=== PATIENT | male | born 1990 | race Caucasian/White ===

== ENCOUNTER 2017-09-17 08:21 | Emergency (ER) | payer SELFPAY ==
[~2017-09-17] VITALS: Ht 177.8 cm; Wt 77.1 kg
[2017-09-17 08:36] VITALS: BP 125/68
[2017-09-17 09:21] LABS: HEMATOCRIT 44.3 % (42.0-52.0); HEMOGLOBIN 15.6 G/DL (14.2-18.0); LYMPHOCYTES % (AUTO) 10.5 % (20.0-45.0); MEAN CORPUSCULAR VOLUME 92 FL (80-99); MONOCYTES % (AUTO) 8.2 % (1.0-10.0); NEUTROPHILS % (AUTO) 79.3 % (45.0-75.0); PLATELET COUNT 189 K/UL (150-450); RED BLOOD COUNT 4.81 M/UL (4.70-6.10); RED CELL DISTRIBUTION WIDTH 10.3 % (11.6-14.8); WHITE BLOOD COUNT 12.8 K/UL (4.8-10.8)
[2017-09-17 09:25] LABS: ANION GAP 7 mmol/L (5-15); BLOOD UREA NITROGEN 19 mg/dL (7-18); CALCIUM 9.1 MG/DL (8.5-10.1); CARBON DIOXIDE 28 MMOL/L (21-32); CHLORIDE 105 MMOL/L (98-107); CREATININE 0.7 MG/DL (0.55-1.30); POTASSIUM 4.8 MMOL/L (3.5-5.1); SODIUM 140 MMOL/L (136-145)
[2017-09-17 09:39] LABS: ALANINE AMINOTRANSFERASE 37 U/L (12-78); ALBUMIN 4.1 G/DL (3.4-5.0); ALBUMIN/GLOBULIN RATIO 1.2 (1.0-2.7); ALKALINE PHOSPHATASE 61 U/L (46-116); ASPARTATE AMINO TRANSFERASE 18 U/L (15-37); BILIRUBIN,TOTAL 0.5 MG/DL (0.2-1.0)
[2017-09-17] MEDS ORDERED: CIPROFLOXACIN500 M2 ORAL (10:30)
[2017-09-17] MEDS ORDERED: ANUSOL-HC30 GM RC (10:30)
--- NOTE | 2017-09-17 10:34 | Emergency Room Report ---
History of Present Illness General Chief Complaint: Abdominal Pain Source: Patient Present Illness HPI Patient presents with complaints of left-sided mid abdominal pain cramping sensation He reports that he has been constipated and having to bear down has caused some rectal discomfort as well Patient had previous hemorrhoid surgery about 3 years ago He was now seeing some blood when he wiped on the toilet paper Denies any vomiting denies any diarrhea denies any chest pain or shortness of breath denies any fevers pain is 3-4 out of 10 Main location of discomfort is the rectal region Allergies: Coded Allergies: AMOXICILLIN (Verified Allergy, Unknown, 09/17/17) CLAVULANIC ACID (Verified Allergy, Unknown, 09/17/17) Patient History Past Medical History: see triage record Pertinent Family History: none Reviewed Nursing Documentation: PMH: Agreed; PSxH: Agreed Nursing Documentation-PMH Past Medical History: No History, Except For Hx Gastrointestinal Problems: Yes - hemmoroids Review of Systems All Other Systems: negative except mentioned in HPI Physical Exam Vital Signs Date Time Temp Pulse Resp B/P (MAP) Pulse Ox O2 Delivery O2 Flow Rate FiO2 09/17/17 08:23 98.2 80 16 130/72 99 Room Air 98.2 Sp02 EP Interpretation: reviewed, normal General Appearance: well appearing, no apparent distress Head: normocephalic, atraumatic Eyes: bilateral eye PERRL, bilateral eye EOMI ENT: hearing grossly normal, normal pharynx, TMs + canals normal, uvula midline Neck: full range of motion, supple, no meningismus, no bony tend Respiratory: lungs clear, normal breath sounds, no rhonchi, no respiratory distress, no retraction, no accessory muscle use Cardiovascular #1: normal peripheral pulses, regular rate, rhythm, no edema, no gallop, no JVD, no murmur Gastrointestinal: normal bowel sounds, non tender, soft, no mass, no organomegaly, non-distended, no guarding, no hernia, no pulsatile mass, no rebound Rectal: other - Externally there is no signs of any hemorrhoids no fissure palpated or seen Genitourinary: no CVA tenderness Musculoskeletal: normal inspection Neurologic: oriented x3, responsive, group supervisor yard III-XII nml as tested, motor strength/ tone normal, sensory intact Psychiatric: mood/affect normal Skin: normal color, no rash, warm/dry, palpation normal Lymphatic: normal inspection, no adenopathy Medical Decision Making Diagnostic Impression: Primary Impression: abdominal pain ER Course With the history exam and presentation, multiple differentials considered, including but not limited to appendicitis, gastritis, cholecystitis, diverticulitis Patient's white blood cell count is very minimally elevated Repeat abdominal exams performed and the patient's abdomen remains soft and nontender I had discussion with them regarding early appendicitis and the need for close follow-up CT imaging was not appropriate at this time Patient also requesting medicine for rectal discomfort And will have close outpatient follow-up Labs Test 09/17/17 08:52 White Blood Count 12.8 K/UL (4.8-10.8) Red Blood Count 4.81 M/UL (4.70-6.10) Hemoglobin 15.6 G/DL (14.2-18.0) Hematocrit 44.3 % (42.0-52.0) Mean Corpuscular Volume 92 FL (80-99) Mean Corpuscular Hemoglobin 32.5 PG (27.0-31.0) Mean Corpuscular Hemoglobin Concent 35.3 G/DL (32.0-36.0) Red Cell Distribution Width 10.3 % (11.6-14.8) Platelet Count 189 K/UL (150-450) Mean Platelet Volume 7.3 FL (6.5-10.1) Neutrophils (%) (Auto) 79.3 % (45.0-75.0) Lymphocytes (%) (Auto) 10.5 % (20.0-45.0) Monocytes (%) (Auto) 8.2 % (1.0-10.0) Eosinophils (%) (Auto) 1.0 % (0.0-3.0) Basophils (%) (Auto) 1.0 % (0.0-2.0) Sodium Level 140 MMOL/L (136-145) Potassium Level 4.8 MMOL/L (3.5-5.1) Chloride Level 105 MMOL/L (98-107) Carbon Dioxide Level 28 MMOL/L (21-32) Anion Gap 7 mmol/L (5-15) Blood Urea Nitrogen 19 mg/dL (7-18) Creatinine 0.7 MG/DL (0.55-1.30) Estimat Glomerular Filtration Rate > 60 mL/min (>60) Glucose Level 108 MG/DL (74-106) Calcium Level 9.1 MG/DL (8.5-10.1) Total Bilirubin 0.5 MG/DL (0.2-1.0) Aspartate Amino Transf (AST/SGOT) 18 U/L (15-37) Alanine Aminotransferase (ALT/SGPT) 37 U/L (12-78) Alkaline Phosphatase 61 U/L (46-116) Total Protein 7.5 G/DL (6.4-8.2) Albumin 4.1 G/DL (3.4-5.0) Globulin 3.4 g/dL Albumin/Globulin Ratio 1.2 (1.0-2.7) Lipase 78 U/L (73-393) Last Vital Signs Date Time Temp Pulse Resp B/P (MAP) Pulse Ox O2 Delivery O2 Flow Rate FiO2 09/17/17 08:36 98.2 83 14 125/68 100 Room Air 98.2 Status: improved Disposition: HOME, SELF-CARE Condition: Stable Scripts Hydrocortisone Hc 2.5% Cream (ANUSOL-HC 2.5% CREAM) Y Cr 30 GM RC TID for 7 Days, GM Prov: Mikel Gao DO 09/17/17 Ciprofloxacin Hcl* (CIPROFLOXACIN HCL*) 500 Mg Tablet 500 MG ORAL Q12H, #10 TAB 0 Refills Prov: Mikel Gao DO 09/17/17 Referrals: NOT CHOSEN [facility]/MD,REFERRING (PCP) Patient Instructions: Abdominal Pain, Adult Additional Instructions: Early appendicitis instructions have been given. If he develop any increased fever or pain localizing to the right side these may be signs of your appendix being infected and you need to return to the emergency room immediately. At this time the exam is not consistent with appendicitis, however early presentations can be missed Mikel Goa DO September 17, 2017 10:34
[2017-09-17 10:46] VITALS: BP 124/76
[2017-09-18] MEDS ORDERED: ACETAMINOPHEN-1 EAC1 ORAL (10:08)
[2017-09-18] MEDS ORDERED: BACTRIM DS TAB1 EAC1 ORAL (10:08)
== END 2017-09-17 10:50 | disposition home or self-care (01) ==
LOC: EMR 08:53
DX: R10.9 Unspecified abdominal pain (principal); Z88.0 Allergy status to penicillin; Z88.8 Allergy status to other drugs, medicaments and biological substances
CPT/HCPCS: 36415; 80053; 83690; 85025; 99284

== ENCOUNTER 2017-09-18 07:24 | Emergency (ER) | payer SELFPAY ==
[~2017-09-18] VITALS: Ht 177.8 cm; Wt 77.1 kg
[~2017-09-18 07:24] MED LIST: ANUSOL-HC30 GM RC; CIPROFLOXACIN500 M2 ORAL
[2017-09-18 07:38] VITALS: BP 138/69
[2017-09-18] MEDS ORDERED: Isovue-300 100ml vial INJ PRN (08:15)
[2017-09-18] MEDS ORDERED: Morphine Sulfate 4mg/ml Inj IVP ONE (08:22)
--- NOTE | 2017-09-18 08:45 | Emergency Room Report ---
History of Present Illness General Chief Complaint: Skin Rash/Abscess Source: Patient Present Illness HPI 26-year-old male presents with rectal pain after having diarrhea for the last few days He reports no bowel pain, no vomiting, no diarrhea for the last day, no fever However he reports rectal pain and feels like he may have an abscess It is very painful and tender to touch and hurts when he wipes He denies rectal bleeding He does report he's had a hemorrhoidectomy in the remote past He's tried topical hydrocortisone without relief Allergies: Coded Allergies: AMOXICILLIN (Verified Allergy, Unknown, 09/17/17) CLAVULANIC ACID (Verified Allergy, Unknown, 09/17/17) Patient History Limited by: language barrier Past Medical History: see triage record Reviewed Nursing Documentation: PMH: Agreed; PSxH: Agreed Nursing Documentation-PMH Past Medical History: No History, Except For Hx Gastrointestinal Problems: Yes - hemmoroids Review of Systems All Other Systems: negative except mentioned in HPI Physical Exam Vital Signs Date Time Temp Pulse Resp B/P (MAP) Pulse Ox O2 Delivery O2 Flow Rate FiO2 09/18/17 07:28 98.5 79 18 133/66 98 Room Air 98.4 Sp02 EP Interpretation: reviewed, normal General Appearance: no apparent distress, alert, non-toxic Head: normocephalic Eyes: bilateral eye normal inspection, bilateral eye PERRL, bilateral eye EOMI ENT: normal ENT inspection, hearing grossly normal, normal pharynx, no angioedema, normal voice, moist mucus membranes Neck: normal inspection, full range of motion, supple, supple/symm/no masses Respiratory: chest non-tender, lungs clear, normal breath sounds, chest symmetrical, palpation of chest normal Cardiovascular #1: normal peripheral pulses, regular rate, rhythm Gastrointestinal: normal inspection, non tender, soft, no mass, no guarding, no rebound Rectal: tenderness - Tiny <1cm mass at 3 o'clock position, with obvious erythema and tenderness concerning for abscess versus cellulitis alone, immediately at the external portion of the anal sphincter Genitourinary: normal inspection, no CVA tenderness Musculoskeletal: back normal, gait/station normal, normal range of motion, non- tender, no calf tenderness Neurologic: alert, responsive, taker down III-XII nml as tested, motor strength/tone normal, sensory intact, speech normal Psychiatric: judgement/insight normal, memory normal, mood/affect normal, no suicidal/homicidal ideation Skin: normal color, no rash, warm/dry, normal turgor Lymphatic: no adenopathy Medical Decision Making ER Course Dr. Todd came down and requested a CT scan prior to performing I&D of this anal sphincter abscess Patient was given analgesics and antibiotics CT/MRI/US Diagnostic Results CT/MRI/US Diagnostic Results : Imaging Test Ordered: ct pelvis with IV contrast Impression Pt had an I&D performed by Dr. Todd, and will be dc'd with f/u with him as an outpatient. Last Vital Signs Date Time Temp Pulse Resp B/P (MAP) Pulse Ox O2 Delivery O2 Flow Rate FiO2 09/18/17 07:38 98.4 78 18 138/69 98 Room Air 98.4 Status: improved Disposition: HOME, SELF-CARE Condition: Stable Referrals: NOT CHOSEN [facility]/,REFERRING (PCP) JADE MAN M.D September 18, 2017 08:45
[2017-09-18] MEDS ORDERED: Piperacillin/Tazobactam 3.375 GM in NS 110 ML IVPB ONE (09:15)
[2017-09-18 09:19] LABS: BASOPHILS % (AUTO) 0.6 % (0.0-2.0); EOSINOPHILS % (AUTO) 0.3 % (0.0-3.0); HEMATOCRIT 44.5 % (42.0-52.0); HEMOGLOBIN 15.9 G/DL (14.2-18.0); LYMPHOCYTES % (AUTO) 8.2 % (20.0-45.0); MEAN CORPUSCULAR VOLUME 92 FL (80-99); MONOCYTES % (AUTO) 7.7 % (1.0-10.0); NEUTROPHILS % (AUTO) 83.2 % (45.0-75.0); PLATELET COUNT 180 K/UL (150-450); RED BLOOD COUNT 4.84 M/UL (4.70-6.10); RED CELL DISTRIBUTION WIDTH 10.4 % (11.6-14.8); WHITE BLOOD COUNT 15.1 K/UL (4.8-10.8)
[2017-09-18] MEDS ORDERED: Lidocaine 1% 10mg/ml/Epi 0.005mg/ml 30ml vial INJ ONE ×2 (09:34→09:45)
[2017-09-18 09:43] LABS: ANION GAP 7 mmol/L (5-15); BLOOD UREA NITROGEN 11 mg/dL (7-18); CARBON DIOXIDE 26 MMOL/L (21-32); CHLORIDE 105 MMOL/L (98-107); CREATININE 0.6 MG/DL (0.55-1.30); POTASSIUM 4.3 MMOL/L (3.5-5.1); SODIUM 138 MMOL/L (136-145)
[2017-09-18] MEDS ORDERED: ACETAMINOPHEN-1 EAC1 ORAL (10:08)
[2017-09-18] MEDS ORDERED: BACTRIM DS TAB1 EAC1 ORAL (10:08)
[2017-09-18 10:20] VITALS: BP 138/69
--- NOTE | 2017-09-18 10:53 | Diagnostic Imaging Report ---
Indication: Perirectal pain Technique: Continuous helical transaxial imaging of the pelvis was obtained from the iliac crest to the pubic symphysis. Coronal 2-D reformats were also obtained. Study obtained in a Siemens sensation [address] Intravenous non-ionic contrast was administered. Total Dose length Product (DLP): 519.[address] Dose Index Volume (CTDIvol): 12.56,13.53 mGy Comparison: None Findings: Below the pelvic floor in the area of the anus there is soft tissue swelling likely indicative of inflammation. On the left side there is the suggestion of a circumscribed 1 x 2 cm fluid collection suspicious for a small perianal abscess. (For example image [id number] series 3). The adjacent ischial rectal fossa fat appears normal. The pelvic floor itself is unremarkable. There is no evidence of intrapelvic abscess or fluid. There is a moderate degree of formed stool retention in the visualized part of the colon and rectum. IMPRESSION: Suspicion of a 2 x 1 cm left perianal abscess. Please correlate clinically. The CT scanner at [facility] is accredited by the [employer] and the scans are performed using dose optimization techniques as appropriate to a performed exam including Automatic Exposure control.
--- NOTE | 2017-09-18 12:07 | Operative Note - PDOC ---
Operative Note Operative Note Date of Operation/Procedure: September 18, 2017 Pre-op Diagnosis: perianal abscess Procedure: incision and drainage of perianal abscess Post-op Diagnosis: same as pre-op Surgeon: sonali Anesthesia: local Specimen: none Complications: none Condition: stable Estimated Blood Loss: minimal Drains: none Implant(s) used?: No Indications for Procedure 26M with history of hemorrhoids and prior thrombosed hemorrhoids s/p I&D presented with acute worsening of perianal pain. recently seen in ED and found to have small perianal abscess and was given oral abx and discharged. returned today with worsening pain after BM this AM. afebrile, HD stable, leukocytosis, CT reviewed. on exam noted to have left perianal abscess. tender, erythema, small area of fluctuance. risks, benefits, and alternatives discussed with patient. he agreed to I&D and consented at bedside. Description of Procedure patient was made comfortable and positioned in the left lateral decubitus position in hospital bed. anal region prepped and draped in standard surgical fashion. 15cc of 1% lido with epi infiltrated. once good control noted and patient comfortable a cruciate incision was made over area of greatest fluctuance. surgical instruments used to dissect out cavity and 10cc of pus was evacuated. no other tracking or loculations noted. wound irrigated with sterile saline until clean. packing and dressings placed. patient tolerated well. wound care instructions given to patient in detail. follow up this Monday in my office for wound check. office info given to patient. Jefferson Todd September 18, 2017 12:07
== END 2017-09-18 10:20 | disposition home or self-care (01) ==
LOC: EMR 08:02
DX: K61.0 Anal abscess (principal); Z88.0 Allergy status to penicillin; Z88.8 Allergy status to other drugs, medicaments and biological substances
CPT/HCPCS: 10060; 36415; 46050; 72193; 80048; 85025; 96361; 96374; 96375; 99284; J2270; J2543; Q9967

== ENCOUNTER 2018-08-01 00:15 | Emergency (ER) | payer MEDICAID, OTHER ==
[~2018-08-01] VITALS: Ht 177.8 cm; Wt 83.9 kg
[~2018-08-01 00:15] MED LIST changes: +ACETAMINOPHEN-1 EAC1 ORAL; +BACTRIM DS TAB1 EAC1 ORAL
[2018-08-01 00:37] VITALS: BP 140/80
--- NOTE | 2018-08-01 00:40 | NUR ---
ED Nurse Note: Pt c/o months ago R eye was cut by leave and healed, today Pt rub R eye and redness, painful and blurry. eye appears pink, pt is still able to see 20/15 on eye chart. pt pupiles are rounds and ractive to light and accomodating.
[2018-08-01] MEDS ORDERED: Tetracaine 0.5% Opth 4ml Soln RIGHT EYE ONE (01:00)
[2018-08-01] MEDS ORDERED: Fluorescein Strips RIGHT EYE ONE (01:00)
[2018-08-01] MEDS ORDERED: ERYTHROMYCIN3.5 GM RIGHT EYE (01:16)
[2018-08-01] MEDS ORDERED: CYCLOGYL 1% OP S2 ML OP (01:16)
[2018-08-01 01:21] VITALS: BP 136/76
--- NOTE | 2018-08-01 01:22 | NUR ---
ER DISCHARGE NOTE: Patient is cleared to be discharged per ERMD, pt is aox4, on room air, with stable vital signs. pt was given dc and prescription instructions, pt was able to verbalize understanding, pt id band removed without complications. pt is able to ambulate with steady gait. pt took all belongings.
--- NOTE | 2018-08-01 05:08 | Emergency Room Report ---
History of Present Illness General Chief Complaint: Eye Problems Source: Patient Present Illness HPI Patient is 27-year-old male presented after increased right eye pain. Patient was noted to have increased foreign body sensation. He reportedly had injured his right eye by hitting a plant. Patient reports having onset of symptoms several weeks ago. He reports having some continued foreign body sensation. Patient denies any prior past medical history. He states he takes PREP but does not have a history of HIV Allergies: Coded Allergies: AMOXICILLIN (Verified Allergy, Unknown, 09/17/17) CLAVULANIC ACID (Verified Allergy, Unknown, 09/17/17) Patient History Past Medical History: see triage record Reviewed Nursing Documentation: PMH: Agreed; PSxH: Agreed Nursing Documentation-PMH Hx Gastrointestinal Problems: Yes - hemmoroids Review of Systems All Other Systems: negative except mentioned in HPI Physical Exam Vital Signs Date Time Temp Pulse Resp B/P (MAP) Pulse Ox O2 Delivery O2 Flow Rate FiO2 08/01/18 00:27 97.9 64 20 140/80 98 Room Air General Appearance: well appearing, no apparent distress, alert, GCS 15 Head: normocephalic, atraumatic Eyes: bilateral eye PERRL, bilateral eye other - right eye fluorescein dye uptake at 6:00 ENT: hearing grossly normal, normal voice Neck: full range of motion, supple Respiratory: no respiratory distress, speaking full sentences Musculoskeletal: no calf tenderness Neurologic: normal gait Psychiatric: mood/affect normal Skin: no rash Medical Decision Making Diagnostic Impression: Primary Impression: Corneal abrasion, right ER Course Patient presented for right eye pain. Differential diagnosis include was not limited to foreign body, corneal abrasion, chemical conjunctivitis among others. Patient was noted to have some fluorescein dye uptake below what appears to be a right sided corneal abrasion. Patient did not appear to have any dendritic lesions. Patient was given prescription for antibiotics as well as cycloplegics. Patient was advised to follow-up with In the morning With ophthalmology Last Vital Signs Date Time Temp Pulse Resp B/P (MAP) Pulse Ox O2 Delivery O2 Flow Rate FiO2 08/01/18 01:21 97.9 90 18 136/76 97 Room Air Status: improved Disposition: HOME, SELF-CARE Condition: Stable Scripts Cyclopentolate HCl (Cyclopentolate HCl) 2 Ml Drops 2 ML OP TID, #2 ML Prov: Fredy Walker MD 08/01/18 Erythromycin Base (ERYTHROMYCIN*) 3.5 Gm Oint...g. 1 APPLIC RIGHT EYE FOUR TIMES A DAY, #3.5 GM 0 Refills Prov: Fredy Walker MD 08/01/18 Referrals: [facility],REFERRING (PCP) Patient Instructions: Corneal Abrasion Additional Instructions: Follow up with opthalmology tomorrow for recheck Fredy Walker MD Aug 01, 2018 05:08
== END 2018-08-01 01:25 | disposition home or self-care (01) ==
LOC: EMR 00:44
DX: S05.01XA Injury of conjunctiva and corneal abrasion without foreign body, right eye, initial encounter (principal); W22.8XXA Striking against or struck by other objects, initial encounter; Y92.9 Unspecified place or not applicable; Z88.8 Allergy status to other drugs, medicaments and biological substances
CPT/HCPCS: 99283